=== PATIENT | male | born 1970 | race Caucasian/White ===

== ENCOUNTER 2020-03-25 15:42 | Emergency (ER) | payer SELFPAY ==
[~2020-03-25] VITALS: Ht 177.8 cm; Wt 81.2 kg
[2020-03-25 15:48] VITALS: Ht 177.8 cm; Wt 81.2 kg
[2020-03-25 17:02] VITALS: BP 136/99
== END 2020-03-25 17:02 | disposition home or self-care (01) ==
LOC: ED 15:42
DX: F41.9 Anxiety disorder, unspecified (principal); R42 Dizziness and giddiness; Z88.6 Allergy status to analgesic agent